=== PATIENT | female | born 1980 | race African-American/Black ===

== ENCOUNTER 2017-04-25 02:09 | Inpatient (IN) | payer OTHER ==
[~2017-04-25] VITALS: Ht 157.5 cm; Wt 152.3 kg
[2017-04-25 02:38] LABS: BASE EXCESS 5.4 mEq/L (-3 to +3); CARBOXY HGB 4.1 % (0-5); COMMENTS - BLOOD GASES C+A+; DEVICE NC; METHEMOGLOBIN 0.7 % (0-1.5); O2 FLOW 4 L/MIN; PCO2 50 mm Hg (35-45); PO2 61 mm Hg (80-100); SITE RR
[2017-04-25 03:01] LABS: HEMATOCRIT 34.9 % (36.0-46.0); MCH 18.3 PG (29.0-34.0); MCHC 25.8 G/DL (30.0-36.0); MCV 70.8 FL (83-99); MEAN PLAT.VOLUME 9.6 uM^3 (9.5-12.4); NRBC (%) 0.5 /100 WBC (0-0); PLATELET COUNT 388 K/uL (156-360); RBC DIS.WIDTH-CV 25.1 % (11.8-14.6); RBC DIS.WIDTH-SD 61.1 % (39-53); RED BLOOD COUNT 4.93 M/uL (3.80-5.20); WHITE BLOOD COUNT 10.3 K/uL (4.1-10.2)
[2017-04-25 03:05] LABS: CHLORIDE 95 mEq/L (99-109); POTASSIUM 4.5 mEq/L (3.7-5.4); SODIUM 133 mEq/L (136-147)
[2017-04-25 03:07] LABS: GLUCOSE 190 mg/dL (70-99)
[2017-04-25 03:08] LABS: ANION GAP 11 MEQ/L (2-14)
[2017-04-25 03:09] LABS: TOTAL BILIRUBIN 1.2 mg/dL (0.0-1.0)
[2017-04-25 03:11] LABS: ALKALINE PHOSPHATASE 87 IU/L (3-129)
[2017-04-25 03:12] LABS: UREA NITROGEN (BUN) 8 mg/dL (9-23)
[2017-04-25 03:14] LABS: LIPASE 7 U/L (1.0-51.0)
[2017-04-25 03:15] LABS: GFR ESTIMATE (CALCULATED) > 59 mL/min/
[2017-04-25 03:21] LABS: TROP-I INTERPRETATION NEGATIVE; TROPONIN-I < 0.01 ng/mL (0.0-0.30)
[2017-04-25 03:22] LABS: QUANTITATIVE HCG < 4.0 MIU/ML
[2017-04-25 03:29] LABS: ADD MIUA? YES; BILIRUBIN NEGATIVE; BLOOD LARGE; COLOR YELLOW ((YELLOW)); GLUCOSE (STRIP) NEGATIVE; KETONES NEGATIVE; LEUKOCYTES MODERATE; NITRITE NEGATIVE; PROTEIN (STRIP) 100; SPECIFIC GRAVITY 1.008 (1.000-1.030)
[2017-04-25 03:32] LABS: BACTERIA RARE /HPF; EPITHELIAL CELLS 1+ /HPF; MUCUS 1+ /LPF; RED BLOOD CELLS TNTC /HPF (0-5); UCUL ADDED? YES; WHITE BLOOD CELLS 15-20 /HPF (0-5)
[2017-04-25 09:40] LABS: IRON 25 MCG/DL (35-150)
[2017-04-25 13:21] VITALS: BP 125/69
[2017-04-25 17:23] VITALS: BP 112/59
[2017-04-25 20:06] VITALS: BP 127/80
[2017-04-25 22:56] VITALS: BP 130/84
[2017-04-26 04:45] VITALS: BP 118/61
[2017-04-26 06:26] LABS: HEMATOCRIT 35.2 % (36.0-46.0); MCH 17.8 PG (29.0-34.0); MCHC 24.4 G/DL (30.0-36.0); MCV 72.9 FL (83-99); NRBC (%) 0.8 /100 WBC (0-0); PLATELET COUNT 319 K/uL (156-360); RBC DIS.WIDTH-CV 24.9 % (11.8-14.6); RBC DIS.WIDTH-SD 63.4 % (39-53); RED BLOOD COUNT 4.83 M/uL (3.80-5.20); WHITE BLOOD COUNT 11.4 K/uL (4.1-10.2)
[2017-04-26 06:37] LABS: TROP-I INTERPRETATION NEGATIVE; TROPONIN-I < 0.01 ng/mL (0.0-0.30)
[2017-04-26 07:01] LABS: ANION GAP 8 MEQ/L (2-14); CHLORIDE 93 MEQ/L (99-109); GFR ESTIMATE (CALCULATED) > 59 mL/min/; POTASSIUM 4.8 MEQ/L (3.7-5.4); SAMPLE HEMOLYSIS CHECK 0; SAMPLE ICTERIC CHECK 0; SAMPLE LIPEMIA CHECK 0; SODIUM 132 MEQ/L (136-147); UREA NITROGEN (BUN) 16 mg/dL (9-23)
[2017-04-26 07:02] LABS: GLUCOSE 306 mg/dL (70-99)
[2017-04-26 07:32] LABS: BASE EXCESS 10.2 mEq/L (-3 to +3); BICARBONATE 37.8 mEq/L (22-26); CARBOXY HGB 2.9 % (0-5); METHEMOGLOBIN 1.3 % (0-1.5); PCO2 70 mm Hg (35-45); PO2 69 mm Hg (80-100); SITE LR; pH 7.34 (7.35-7.45)
[2017-04-26 07:33] LABS: COMMENTS - BLOOD GASES A+C+; DEVICE NCH; O2 FLOW 5 L/MIN
[2017-04-26 07:34] LABS: TOTAL RESP RATE 28 resp/min
[2017-04-26 07:56] VITALS: BP 124/60
[2017-04-26 11:38] VITALS: BP 132/64
[2017-04-26 11:44] LABS: TROP-I INTERPRETATION NEGATIVE; TROPONIN-I < 0.01 ng/mL (0.0-0.30)
[2017-04-26 11:45] LABS: POINT-OF-CARE METER ID UU14174216
[2017-04-26 15:32] VITALS: BP 123/74
[2017-04-26 16:42] LABS: POINT-OF-CARE METER ID UU14174216
[2017-04-26 20:05] VITALS: BP 120/68
[2017-04-26 20:56] LABS: POINT-OF-CARE METER ID UU13113698
[2017-04-26 23:45] VITALS: BP 111/69
[2017-04-27 04:45] VITALS: BP 115/67
[2017-04-27 05:45] LABS: HEMATOCRIT 34.8 % (36.0-46.0); MCH 17.9 PG (29.0-34.0); MCHC 24.7 G/DL (30.0-36.0); MCV 72.3 FL (83-99); MEAN PLAT.VOLUME 10.2 uM^3 (9.5-12.4); NRBC (%) 0.8 /100 WBC (0-0); PLATELET COUNT 314 K/uL (156-360); RBC DIS.WIDTH-CV 24.1 % (11.8-14.6); RBC DIS.WIDTH-SD 60.9 % (39-53); RED BLOOD COUNT 4.81 M/uL (3.80-5.20); WHITE BLOOD COUNT 10.7 K/uL (4.1-10.2)
[2017-04-27 06:05] LABS: ALKALINE PHOSPHATASE 89 IU/L (3-129); ANION GAP 6 MEQ/L (2-14); CHLORIDE 88 MEQ/L (99-109); GFR ESTIMATE (CALCULATED) > 59 mL/min/; GLUCOSE 328 mg/dL (70-99); POTASSIUM 3.7 MEQ/L (3.7-5.4); SAMPLE HEMOLYSIS CHECK 0; SAMPLE ICTERIC CHECK 0; SAMPLE LIPEMIA CHECK 0; SODIUM 133 MEQ/L (136-147); UREA NITROGEN (BUN) 20 mg/dL (9-23)
[2017-04-27 06:37] LABS: IMMUNOGLOBULIN A 377 MG/DL (40-350); IMMUNOGLOBULIN M 87 MG/DL (50-300)
[2017-04-27 06:49] LABS: IMMUNOGLOBULIN G 3172 MG/DL (650-1600)
[2017-04-27 07:30] VITALS: BP 109/61
[2017-04-27 08:06] LABS: Estimated Average Glucose 229 mg/dL (70-123); HEMOGLOBIN A1c (GLYCOHEMOGLOB) 9.6 % HGB (Below 5.7)
[2017-04-27 08:43] LABS: POINT-OF-CARE METER ID UU14314088; POINT-OF-CARE USER ID ENVKC36
[2017-04-27 11:49] VITALS: BP 115/66
[2017-04-27 12:14] LABS: ANTI-HEPATITIS A VIRUS (IGM) Nonreactive; HAV INDEX 0.15
[2017-04-27 12:15] LABS: ANTI-HEPATITIS B CORE (IGM) Nonreactive; HBC IgM INDEX 0.09
[2017-04-27 12:30] LABS: POINT-OF-CARE METER ID UU14174216
[2017-04-27 13:32] LABS: JO-1 ANTIBODY 14 U/mL (0-99); SM (SMITH) ANTIBODY 16 U/mL (0-99); SS-A (SJOGREN'S) ANTIBODY 103 U/mL (0-99); SS-B (SJOGREN'S) ANTIBODY 12 U/mL (0-99)
[2017-04-27 16:52] VITALS: BP 117/60
[2017-04-27 17:00] LABS: POINT-OF-CARE METER ID UU13113781; POINT-OF-CARE USER ID ENVKC36
[2017-04-27 20:05] VITALS: BP 130/81
[2017-04-27 21:30] LABS: POINT-OF-CARE METER ID UU13113698
[2017-04-28 00:20] VITALS: BP 114/73
[2017-04-28 01:20] LABS: UR CREATININE CONCENTRATION 87.4 MG/DL
[2017-04-28 04:45] LABS: VENOUS PCO2 75 mm Hg (41-51)
[2017-04-28 04:47] LABS: CARBON DIOXIDE (BICARBONATE) > 40.0 MEQ/L (20-31)
[2017-04-28 05:04] LABS: POTASSIUM 3.7 mEq/L (3.7-5.4); SODIUM 133 mEq/L (136-147)
[2017-04-28 05:05] LABS: CHLORIDE 85 mEq/L (99-109); MAGNESIUM 1.1 mg/dL (1.3-2.7)
[2017-04-28 05:06] LABS: GLUCOSE 390 mg/dL (70-99)
[2017-04-28 05:07] LABS: ANION GAP 8 MEQ/L (2-14)
[2017-04-28 05:10] LABS: GFR ESTIMATE (CALCULATED) > 59 mL/min/
[2017-04-28 05:11] LABS: UREA NITROGEN (BUN) 24 mg/dL (9-23)
[2017-04-28 05:14] LABS: BASE EXCESS 21.7 mEq/L (-3 to +3); BICARBONATE 50.2 mEq/L (22-26); CARBOXY HGB 2.9 % (0-5); COMMENTS - BLOOD GASES A+C+; DEVICE HHFNC; FI02 40 %; METHEMOGLOBIN 1.6 % (0-1.5); O2 FLOW 30 L/MIN; PCO2 83 mm Hg (35-45); PO2 58 mm Hg (80-100); SITE LR; pH 7.39 (7.35-7.45)
[2017-04-28 07:45] VITALS: BP 118/69
[2017-04-28 07:46] LABS: POINT-OF-CARE METER ID UU13113698
[2017-04-28 11:48] VITALS: BP 120/61
[2017-04-28 11:52] LABS: POINT-OF-CARE METER ID UU13113698
[2017-04-28 14:28] LABS: ALPHA-1-ANTITRYPSIN+ 251 mg/dL (83-199)
[2017-04-28 15:41] VITALS: BP 128/62
[2017-04-28 17:34] LABS: POINT-OF-CARE METER ID UU14314088
[2017-04-28 19:15] VITALS: BP 125/65
[2017-04-28 21:51] LABS: POINT-OF-CARE METER ID UU13113781
[2017-04-28 23:58] VITALS: BP 117/65
[2017-04-29 00:21] LABS: ANTI-SMOOTH MUSCLE (Actin)+ <20 U (<20)
[2017-04-29 03:40] VITALS: BP 118/76
[2017-04-29 05:23] LABS: CHLORIDE 82 mEq/L (99-109); POTASSIUM 4.2 mEq/L (3.7-5.4); SODIUM 133 mEq/L (136-147)
[2017-04-29 05:25] LABS: GLUCOSE 382 mg/dL (70-99)
[2017-04-29 05:26] LABS: ANION GAP 6 MEQ/L (2-14)
[2017-04-29 05:29] LABS: GFR ESTIMATE (CALCULATED) > 59 mL/min/
[2017-04-29 05:30] LABS: UREA NITROGEN (BUN) 27 mg/dL (9-23)
[2017-04-29 05:32] LABS: CARBON DIOXIDE (BICARBONATE) > 40.0 mEq/L (20-31); MAGNESIUM 1.7 mg/dL (1.3-2.7)
[2017-04-29 07:45] VITALS: BP 120/71
[2017-04-29 08:09] LABS: POINT-OF-CARE METER ID UU13113781
[2017-04-29 11:56] LABS: POINT-OF-CARE METER ID UU13113698
[2017-04-29 12:25] LABS: MITOCHONDRIAL (M2) ANTIBODIES+ <=20.0 U (<=20.0)
[2017-04-29 12:49] VITALS: BP 129/74
[2017-04-29 15:35] VITALS: BP 123/79
[2017-04-29 16:44] LABS: POINT-OF-CARE METER ID UU14174216
[2017-04-29 19:20] VITALS: BP 121/76
[2017-04-29 21:00] LABS: POINT-OF-CARE METER ID UU14314088
[2017-04-30 00:10] VITALS: BP 162/60
[2017-04-30 04:27] VITALS: BP 120/72
[2017-04-30 05:22] LABS: HEMATOCRIT 40.9 % (36.0-46.0); MCH 18.2 PG (29.0-34.0); MCHC 24.7 G/DL (30.0-36.0); MCV 73.7 FL (83-99); MEAN PLAT.VOLUME 9.9 uM^3 (9.5-12.4); NRBC (%) 0.2 /100 WBC (0-0); PLATELET COUNT 361 K/uL (156-360); RBC DIS.WIDTH-CV 23.4 % (11.8-14.6); RBC DIS.WIDTH-SD 61.1 % (39-53); RED BLOOD COUNT 5.55 M/uL (3.80-5.20); WHITE BLOOD COUNT 9.1 K/uL (4.1-10.2)
[2017-04-30 05:44] LABS: ANION GAP ND MEQ/L (2-14); CARBON DIOXIDE (BICARBONATE) > 40.0 MEQ/L (20-31); CHLORIDE 80 MEQ/L (99-109); GFR ESTIMATE (CALCULATED) > 59 mL/min/; GLUCOSE 215 mg/dL (70-99); MAGNESIUM 1.8 mg/dl (1.3-2.7); POTASSIUM 4.5 MEQ/L (3.7-5.4); SAMPLE HEMOLYSIS CHECK 0; SAMPLE ICTERIC CHECK 0; SAMPLE LIPEMIA CHECK 0; SODIUM 136 MEQ/L (136-147); UREA NITROGEN (BUN) 25 mg/dL (9-23)
[2017-04-30 07:38] LABS: POINT-OF-CARE METER ID UU13113698
[2017-04-30 08:13] VITALS: BP 99/53
[2017-04-30 09:56] LABS: BASE EXCESS 33.4 mEq/L (-3 to +3); CARBOXY HGB 2.6 % (0-5); METHEMOGLOBIN 1.3 % (0-1.5)
[2017-04-30 09:57] LABS: BICARBONATE 64.4 mEq/L (22-26); DEVICE NC; O2 FLOW 3.5 L/MIN; PCO2 104 mm Hg (35-45); PO2 109 mm Hg (80-100); SITE RR; TOTAL RESP RATE 14 resp/min
[2017-04-30 09:58] LABS: COMMENTS - BLOOD GASES A+C+ CALLED TO RN
[2017-04-30 11:56] LABS: POINT-OF-CARE METER ID UU14174216
[2017-04-30 11:57] VITALS: BP 101/54
[2017-04-30 16:25] VITALS: BP 125/75
[2017-04-30 16:32] LABS: POINT-OF-CARE METER ID UU14174216
[2017-04-30 16:49] LABS: BASE EXCESS 28.4 mEq/L (-3 to +3); BICARBONATE 57.7 mEq/L (22-26); CARBOXY HGB 2.9 % (0-5); COMMENTS - BLOOD GASES A+C+; DEVICE NC; METHEMOGLOBIN 1.6 % (0-1.5); O2 FLOW 2 L/MIN; PCO2 87 mm Hg (35-45); PO2 62 mm Hg (80-100); SITE RR; TOTAL RESP RATE 14 resp/min; pH 7.43 (7.35-7.45)
[2017-04-30 22:27] LABS: POINT-OF-CARE METER ID UU14174225
[2017-04-30 23:35] VITALS: BP 113/74
[2017-05-01 04:35] VITALS: BP 110/71
[2017-05-01 06:03] LABS: EOSINOPHIL (%) 1.1 % (0-5); EOSINOPHIL COUNT 0.1 K/uL (0-0.3); HEMATOCRIT 41.9 % (36.0-46.0); IMMATURE GRANULOCYTE (%) 0.6 % (0.0-0.7); IMMATURE GRANULOCYTE COUNT 0.1 K/uL; INSTRUMENT ABS NEUTROPHIL CT 7.8 K/uL; LYMPHOCYTE COUNT 1.3 K/uL (1.0-2.8); MCH 18.1 PG (29.0-34.0); MCHC 25.3 G/DL (30.0-36.0); MCV 71.4 FL (83-99); MEAN PLAT.VOLUME 9.5 uM^3 (9.5-12.4); MONOCYTE COUNT 1.3 K/uL (0-0.8); NEUTROPHIL (%) 73.9 % (45-76); NEUTROPHIL COUNT 7.8 K/uL (1.8-6.4); PLATELET COUNT 384 K/uL (156-360); RBC DIS.WIDTH-CV 23.1 % (11.8-14.6); RBC DIS.WIDTH-SD 57.6 % (39-53); RED BLOOD COUNT 5.87 M/uL (3.80-5.20); WHITE BLOOD COUNT 10.6 K/uL (4.1-10.2)
[2017-05-01 06:25] LABS: ANION GAP ND MEQ/L (2-14); CHLORIDE 78 MEQ/L (99-109); GFR ESTIMATE (CALCULATED) > 59 mL/min/; SAMPLE HEMOLYSIS CHECK 0; SAMPLE ICTERIC CHECK 0; SAMPLE LIPEMIA CHECK 0; SODIUM 134 MEQ/L (136-147); UREA NITROGEN (BUN) 22 mg/dL (9-23)
[2017-05-01 06:26] LABS: CARBON DIOXIDE (BICARBONATE) > 40.0 MEQ/L (20-31); GLUCOSE 104 mg/dL (70-99)
[2017-05-01 07:54] VITALS: BP 117/72
[2017-05-01 10:03] LABS: POINT-OF-CARE METER ID UU13113717
[2017-05-01 11:36] VITALS: BP 109/76
[2017-05-01 12:23] LABS: POINT-OF-CARE METER ID UU14188625
[2017-05-01 16:24] VITALS: BP 116/73
[2017-05-01 16:26] VITALS: BP 124/73
[2017-05-01 18:00] LABS: ANION GAP ND MEQ/L (2-14); CHLORIDE 78 MEQ/L (99-109); GFR ESTIMATE (CALCULATED) > 59 mL/min/; POTASSIUM 3.7 MEQ/L (3.7-5.4); SAMPLE HEMOLYSIS CHECK 0; SAMPLE ICTERIC CHECK 0; SAMPLE LIPEMIA CHECK 0; SODIUM 133 MEQ/L (136-147); UREA NITROGEN (BUN) 22 mg/dL (9-23)
[2017-05-01 18:09] LABS: CARBON DIOXIDE (BICARBONATE) > 40.0 MEQ/L (20-31); GLUCOSE 195 mg/dL (70-99)
[2017-05-01 18:42] LABS: POINT-OF-CARE METER ID UU14188625
[2017-05-01 23:38] LABS: POINT-OF-CARE METER ID UU13113717
[2017-05-01 23:43] VITALS: BP 130/63
[2017-05-02 07:02] LABS: ALKALINE PHOSPHATASE 102 IU/L (3-129); ANION GAP ND MEQ/L (2-14); CHLORIDE 75 MEQ/L (99-109); DIRECT BILIRUBIN 0.6 mg/dL (0.0-0.3); GFR ESTIMATE (CALCULATED) > 59 mL/min/; GLUCOSE 160 mg/dL (70-99); POTASSIUM 4.1 MEQ/L (3.7-5.4); SAMPLE HEMOLYSIS CHECK 0; SAMPLE ICTERIC CHECK 0; SAMPLE LIPEMIA CHECK 0; SODIUM 133 MEQ/L (136-147); UREA NITROGEN (BUN) 26 mg/dL (9-23)
[2017-05-02 07:08] LABS: CARBON DIOXIDE (BICARBONATE) > 40.0 MEQ/L (20-31); EOSINOPHIL (%) 1.7 % (0-5); EOSINOPHIL COUNT 0.2 K/uL (0-0.3); HEMATOCRIT 45.8 % (36.0-46.0); IMMATURE GRANULOCYTE (%) 0.4 % (0.0-0.7); IMMATURE GRANULOCYTE COUNT 0.1 K/uL; INSTRUMENT ABS NEUTROPHIL CT 9.4 K/uL; LYMPHOCYTE COUNT 1.2 K/uL (1.0-2.8); MCH 18.4 PG (29.0-34.0); MCHC 25.8 G/DL (30.0-36.0); MCV 71.2 FL (83-99); MEAN PLAT.VOLUME 9.5 uM^3 (9.5-12.4); MONOCYTE (%) 10.2 % (3-12); MONOCYTE COUNT 1.2 K/uL (0-0.8); NEUTROPHIL (%) 77.6 % (45-76); NEUTROPHIL COUNT 9.4 K/uL (1.8-6.4); PLATELET COUNT 431 K/uL (156-360); RBC DIS.WIDTH-CV 23.3 % (11.8-14.6); RBC DIS.WIDTH-SD 57.2 % (39-53); RED BLOOD COUNT 6.43 M/uL (3.80-5.20); TOTAL BILIRUBIN 1.4 MG/DL (0.0-1.0); WHITE BLOOD COUNT 12.1 K/uL (4.1-10.2)
[2017-05-02 07:57] VITALS: BP 113/72
[2017-05-02 12:28] LABS: POINT-OF-CARE METER ID UU14174225
[2017-05-02 16:33] VITALS: BP 112/69
[2017-05-02 16:44] LABS: POINT-OF-CARE METER ID UU13113717
[2017-05-02 21:53] LABS: POINT-OF-CARE METER ID UU13113717
[2017-05-02 23:43] VITALS: BP 117/64
[2017-05-03 06:30] LABS: EOSINOPHIL (%) 1.6 % (0-5); EOSINOPHIL COUNT 0.2 K/uL (0-0.3); HEMATOCRIT 44.7 % (36.0-46.0); IMMATURE GRANULOCYTE (%) 0.5 % (0.0-0.7); IMMATURE GRANULOCYTE COUNT 0.1 K/uL; INSTRUMENT ABS NEUTROPHIL CT 10.2 K/uL; LYMPHOCYTE COUNT 1.4 K/uL (1.0-2.8); MCH 18.6 PG (29.0-34.0); MCV 71.5 FL (83-99); MEAN PLAT.VOLUME 9.7 uM^3 (9.5-12.4); MONOCYTE (%) 11.2 % (3-12); MONOCYTE COUNT 1.5 K/uL (0-0.8); NEUTROPHIL COUNT 10.2 K/uL (1.8-6.4); PLATELET COUNT 425 K/uL (156-360); RBC DIS.WIDTH-CV 23.8 % (11.8-14.6); RBC DIS.WIDTH-SD 57.7 % (39-53); RED BLOOD COUNT 6.25 M/uL (3.80-5.20); WHITE BLOOD COUNT 13.4 K/uL (4.1-10.2)
[2017-05-03 07:03] LABS: ALKALINE PHOSPHATASE 108 IU/L (3-129); ANION GAP ND MEQ/L (2-14); CHLORIDE 78 MEQ/L (99-109); GFR ESTIMATE (CALCULATED) > 59 mL/min/; GLUCOSE 140 mg/dL (70-99); POTASSIUM 3.7 MEQ/L (3.7-5.4); SAMPLE HEMOLYSIS CHECK 0; SAMPLE ICTERIC CHECK 0; SAMPLE LIPEMIA CHECK 0; SODIUM 133 MEQ/L (136-147); TOTAL BILIRUBIN 1.5 MG/DL (0.0-1.0); UREA NITROGEN (BUN) 26 mg/dL (9-23)
[2017-05-03 07:04] LABS: CARBON DIOXIDE (BICARBONATE) > 40.0 MEQ/L (20-31)
[2017-05-03 07:52] VITALS: BP 124/66
[2017-05-03 12:04] LABS: POINT-OF-CARE METER ID UU14174225
[2017-05-03 16:05] VITALS: BP 130/58
[2017-05-03 17:06] LABS: POINT-OF-CARE METER ID UU13113717
[2017-05-03 21:27] LABS: POINT-OF-CARE METER ID UU13113717
[2017-05-03 23:41] VITALS: BP 115/73
[2017-05-04 07:44] VITALS: BP 132/84
[2017-05-04 07:48] LABS: POINT-OF-CARE METER ID UU14174225
[2017-05-04 09:25] LABS: ADD MIUA? YES; BILIRUBIN NEGATIVE; BLOOD LARGE; COLOR AMBER ((YELLOW)); GLUCOSE (STRIP) NEGATIVE; KETONES NEGATIVE; LEUKOCYTES MODERATE; NITRITE NEGATIVE; PROTEIN (STRIP) 30; SPECIFIC GRAVITY 1.018 (1.000-1.030)
[2017-05-04 10:26] LABS: RED BLOOD CELLS TNTC /HPF (0-5)
[2017-05-04 12:18] LABS: POINT-OF-CARE METER ID UU14188625
[2017-05-04 12:42] LABS: POINT-OF-CARE METER ID UU13113717
[2017-05-04 13:08] LABS: EOSINOPHIL COUNT 0.3 K/uL (0-0.3); HEMATOCRIT 46.1 % (36.0-46.0); IMMATURE GRANULOCYTE (%) 0.8 % (0.0-0.7); IMMATURE GRANULOCYTE COUNT 0.1 K/uL; INSTRUMENT ABS NEUTROPHIL CT 9.7 K/uL; LYMPHOCYTE COUNT 1.9 K/uL (1.0-2.8); MCH 18.9 PG (29.0-34.0); MCV 72.6 FL (83-99); MEAN PLAT.VOLUME 9.6 uM^3 (9.5-12.4); MONOCYTE (%) 14.4 % (3-12); NEUTROPHIL (%) 69.4 % (45-76); NEUTROPHIL COUNT 9.7 K/uL (1.8-6.4); PLATELET COUNT 429 K/uL (156-360); RBC DIS.WIDTH-CV 24.9 % (11.8-14.6); RBC DIS.WIDTH-SD 61.2 % (39-53); RED BLOOD COUNT 6.35 M/uL (3.80-5.20)
[2017-05-04 13:55] LABS: ALKALINE PHOSPHATASE 108 IU/L (3-129); ANION GAP 10 MEQ/L (2-14); CHLORIDE 82 MEQ/L (99-109); GFR ESTIMATE (CALCULATED) > 59 mL/min/; GLUCOSE 141 mg/dL (70-99); POTASSIUM 4.2 MEQ/L (3.7-5.4); SAMPLE HEMOLYSIS CHECK 0; SAMPLE ICTERIC CHECK 0; SAMPLE LIPEMIA CHECK 0; SODIUM 130 MEQ/L (136-147); TOTAL BILIRUBIN 1.6 MG/DL (0.0-1.0); UREA NITROGEN (BUN) 26 mg/dL (9-23)
[2017-05-04 16:47] LABS: POINT-OF-CARE METER ID UU13113717
[2017-05-04 17:36] VITALS: BP 136/73
[2017-05-04 22:34] LABS: POINT-OF-CARE METER ID UU13113717
[2017-05-04 23:47] VITALS: BP 134/68
[2017-05-05 06:21] LABS: ALKALINE PHOSPHATASE 100 IU/L (3-129); ANION GAP 11 MEQ/L (2-14); CHLORIDE 85 MEQ/L (99-109); GFR ESTIMATE (CALCULATED) > 59 mL/min/; GLUCOSE 134 mg/dL (70-99); POTASSIUM 4.3 MEQ/L (3.7-5.4); SAMPLE HEMOLYSIS CHECK 0; SAMPLE ICTERIC CHECK 0; SAMPLE LIPEMIA CHECK 0; SODIUM 131 MEQ/L (136-147); TOTAL BILIRUBIN 1.4 MG/DL (0.0-1.0); UREA NITROGEN (BUN) 24 mg/dL (9-23)
[2017-05-05 06:49] LABS: EOSINOPHIL COUNT 0.2 K/uL (0-0.3); HEMATOCRIT 44.8 % (36.0-46.0); IMMATURE GRANULOCYTE (%) 0.9 % (0.0-0.7); IMMATURE GRANULOCYTE COUNT 0.1 K/uL; INSTRUMENT ABS NEUTROPHIL CT 7.4 K/uL; LYMPHOCYTE COUNT 1.7 K/uL (1.0-2.8); MCH 18.7 PG (29.0-34.0); MCHC 25.9 G/DL (30.0-36.0); MCV 72.1 FL (83-99); MEAN PLAT.VOLUME 9.8 uM^3 (9.5-12.4); MONOCYTE COUNT 1.9 K/uL (0-0.8); NEUTROPHIL (%) 64.9 % (45-76); NEUTROPHIL COUNT 7.4 K/uL (1.8-6.4); PLATELET COUNT 434 K/uL (156-360); RBC DIS.WIDTH-CV 24.8 % (11.8-14.6); RBC DIS.WIDTH-SD 61.2 % (39-53); RED BLOOD COUNT 6.21 M/uL (3.80-5.20); WHITE BLOOD COUNT 11.4 K/uL (4.1-10.2)
[2017-05-05 07:18] LABS: POINT-OF-CARE METER ID UU14174225
[2017-05-05 07:36] VITALS: BP 104/69
[2017-05-05 12:04] LABS: POINT-OF-CARE METER ID UU14174225
[2017-05-05 15:56] VITALS: BP 115/68
[2017-05-05 16:59] LABS: POINT-OF-CARE METER ID UU14188625
[2017-05-05 21:32] LABS: POINT-OF-CARE METER ID UU14174225
[2017-05-05 23:37] VITALS: BP 115/61
[2017-05-06 00:04] LABS: POINT-OF-CARE METER ID UU14188625
[2017-05-06 03:16] LABS: POINT-OF-CARE METER ID UU13113717
[2017-05-06 06:17] LABS: EOSINOPHIL (%) 1.7 % (0-5); EOSINOPHIL COUNT 0.2 K/uL (0-0.3); IMMATURE GRANULOCYTE (%) 0.6 % (0.0-0.7); IMMATURE GRANULOCYTE COUNT 0.1 K/uL; INSTRUMENT ABS NEUTROPHIL CT 7.7 K/uL; LYMPHOCYTE COUNT 1.3 K/uL (1.0-2.8); MCH 19.4 PG (29.0-34.0); MCHC 26.4 G/DL (30.0-36.0); MCV 73.7 FL (83-99); MEAN PLAT.VOLUME 10.1 uM^3 (9.5-12.4); MONOCYTE (%) 14.7 % (3-12); MONOCYTE COUNT 1.6 K/uL (0-0.8); NEUTROPHIL (%) 70.6 % (45-76); NEUTROPHIL COUNT 7.7 K/uL (1.8-6.4); PLATELET COUNT 424 K/uL (156-360); RBC DIS.WIDTH-SD 66.2 % (39-53); RED BLOOD COUNT 5.97 M/uL (3.80-5.20); WHITE BLOOD COUNT 10.9 K/uL (4.1-10.2)
[2017-05-06 06:57] VITALS: BP 110/66
[2017-05-06 07:15] LABS: POINT-OF-CARE METER ID UU14174225
[2017-05-06 07:59] LABS: ANION GAP 11 MEQ/L (2-14); CHLORIDE 86 MEQ/L (99-109); GFR ESTIMATE (CALCULATED) > 59 mL/min/; GLUCOSE 170 mg/dL (70-99); POTASSIUM 3.9 MEQ/L (3.7-5.4); SAMPLE HEMOLYSIS CHECK 0; SAMPLE ICTERIC CHECK 0; SAMPLE LIPEMIA CHECK 0; SODIUM 131 MEQ/L (136-147); UREA NITROGEN (BUN) 20 mg/dL (9-23)
[2017-05-06 11:12] LABS: POINT-OF-CARE METER ID UU14174225
[2017-05-06 16:14] LABS: POINT-OF-CARE METER ID UU14188625
[2017-05-06 20:38] VITALS: BP 106/62
[2017-05-06 20:59] LABS: POINT-OF-CARE METER ID UU14188625
[2017-05-06 23:38] VITALS: BP 116/70
[2017-05-07 06:11] LABS: HEMATOCRIT 45.8 % (36.0-46.0); MCH 19.1 PG (29.0-34.0); MCHC 25.8 G/DL (30.0-36.0); MCV 74.2 FL (83-99); MEAN PLAT.VOLUME 9.7 uM^3 (9.5-12.4); PLATELET COUNT 408 K/uL (156-360); RBC DIS.WIDTH-CV 26.1 % (11.8-14.6); RBC DIS.WIDTH-SD 67.5 % (39-53); RED BLOOD COUNT 6.17 M/uL (3.80-5.20); WHITE BLOOD COUNT 11.7 K/uL (4.1-10.2)
[2017-05-07 06:30] LABS: ANION GAP 9 MEQ/L (2-14); CHLORIDE 86 MEQ/L (99-109); GFR ESTIMATE (CALCULATED) > 59 mL/min/; GLUCOSE 130 mg/dL (70-99); POTASSIUM 4.3 MEQ/L (3.7-5.4); SAMPLE HEMOLYSIS CHECK 1; SAMPLE ICTERIC CHECK 0; SAMPLE LIPEMIA CHECK 0; SODIUM 131 MEQ/L (136-147); UREA NITROGEN (BUN) 20 mg/dL (9-23)
[2017-05-07] MEDS ORDERED: SPIRONOLACTONE25 MG PO (07:23)
[2017-05-07] MEDS ORDERED: LOPRESSOR25 MG PO (07:23)
[2017-05-07] MEDS ORDERED: LEVEMIR100 UNIT/2 SC (07:23)
[2017-05-07] MEDS ORDERED: FERROUS SULFAT325 MG PO (07:23)
[2017-05-07] MEDS ORDERED: K-DUR20 MEQ PO (07:23)
[2017-05-07] MEDS ORDERED: NOVOLOG PE100 UNITS/ SC (07:23)
[2017-05-07] MEDS ORDERED: BUMETANIDE1 MG PO (07:23)
[2017-05-07 07:26] LABS: POINT-OF-CARE METER ID UU14188625
[2017-05-07 07:49] VITALS: BP 125/70
[2017-05-07] MEDS ORDERED: ADVAIR HFA120 INHALA IH (10:55)
[2017-05-07 12:28] LABS: POINT-OF-CARE METER ID UU14174225
[2017-05-07 16:00] VITALS: BP 113/62
[2017-05-07 17:42] LABS: POINT-OF-CARE METER ID UU14188625
[2017-05-07 21:03] LABS: POINT-OF-CARE METER ID UU14188625
[2017-05-07 23:33] VITALS: BP 115/67
[2017-05-08 08:58] LABS: POINT-OF-CARE METER ID UU13113717
[2017-05-08 09:08] VITALS: BP 132/67
[2017-05-08 12:22] LABS: POINT-OF-CARE METER ID UU13113717
[2017-05-08 16:47] VITALS: BP 110/60
[2017-05-08 16:53] LABS: POINT-OF-CARE METER ID UU14174225
[2017-05-08 21:53] LABS: POINT-OF-CARE METER ID UU13113717
[2017-05-08 23:42] VITALS: BP 121/58
[2017-05-09 07:50] VITALS: BP 130/72
[2017-05-09 08:39] LABS: POINT-OF-CARE METER ID UU13113717
[2017-05-09 12:08] LABS: POINT-OF-CARE METER ID UU14174225
[2017-05-09 16:17] VITALS: BP 128/66
[2017-05-09 17:29] LABS: POINT-OF-CARE METER ID UU13113717
[2017-05-09 21:24] LABS: POINT-OF-CARE METER ID UU14188625
[2017-05-09 23:50] VITALS: BP 114/69
[2017-05-10 06:45] LABS: HEMATOCRIT 40.5 % (36.0-46.0); MCH 20.1 PG (29.0-34.0); MCHC 26.4 G/DL (30.0-36.0); MEAN PLAT.VOLUME 10.4 uM^3 (9.5-12.4); PLATELET COUNT 334 K/uL (156-360); RBC DIS.WIDTH-CV 27.4 % (11.8-14.6); RBC DIS.WIDTH-SD 73.1 % (39-53); RED BLOOD COUNT 5.33 M/uL (3.80-5.20)
[2017-05-10 06:47] LABS: ANION GAP 9 MEQ/L (2-14); CHLORIDE 91 MEQ/L (99-109); GFR ESTIMATE (CALCULATED) > 59 mL/min/; GLUCOSE 158 mg/dL (70-99); POTASSIUM 4.1 MEQ/L (3.7-5.4); SAMPLE HEMOLYSIS CHECK 0; SAMPLE ICTERIC CHECK 0; SAMPLE LIPEMIA CHECK 0; SODIUM 136 MEQ/L (136-147); UREA NITROGEN (BUN) 16 mg/dL (9-23)
[2017-05-10 07:17] VITALS: BP 131/74
[2017-05-10 11:30] LABS: POINT-OF-CARE METER ID UU14174225
[2017-05-10 16:19] VITALS: BP 133/72
[2017-05-10 16:26] LABS: POINT-OF-CARE METER ID UU14188625
[2017-05-10 21:41] LABS: POINT-OF-CARE METER ID UU14174225
[2017-05-10 23:37] VITALS: BP 133/60
[2017-05-11 08:46] LABS: POINT-OF-CARE METER ID UU14174225
[2017-05-11 11:42] LABS: POINT-OF-CARE METER ID UU14174225
[2017-05-11 16:30] VITALS: BP 108/63
[2017-05-11 16:35] LABS: POINT-OF-CARE METER ID UU14174225
[2017-05-11 21:06] LABS: POINT-OF-CARE METER ID UU13113717
[2017-05-12 00:01] VITALS: BP 135/63
[2017-05-12 07:43] VITALS: BP 129/72
[2017-05-12 07:46] LABS: POINT-OF-CARE METER ID UU14174225
[2017-05-12 13:01] LABS: POINT-OF-CARE METER ID UU14174225
[2017-05-12 15:56] VITALS: BP 114/56
[2017-05-12 17:07] LABS: POINT-OF-CARE METER ID UU13113717
[2017-05-12 21:31] LABS: POINT-OF-CARE METER ID UU14174225
[2017-05-13] VITALS: BP 103/55
[2017-05-13 07:26] VITALS: BP 125/68
[2017-05-13 07:29] LABS: POINT-OF-CARE METER ID UU14174225
[2017-05-13 11:45] LABS: POINT-OF-CARE METER ID UU14174225
[2017-05-13 16:12] VITALS: BP 108/66
[2017-05-13 16:53] LABS: POINT-OF-CARE METER ID UU13113717
== END 2017-05-13 18:32 | DRG 205 ==
LOC: EME 02:09 → EDBD 02:09 → 4EAST 03:55 → EDOF 03:55 → ENRESERV 03:56 → 4EAST 12:40 → ENRESERV 04-30 15:59 → 5SOUTH 04-30 18:06
PROVIDERS: Emergency Medicine; Hospitalist; Internal Medicine; Internal Medicine Gastroenterology; Physician Assistant Medical
DX: E66.2 Morbid (severe) obesity with alveolar hypoventilation (principal); Z68.45 Body mass index [BMI] 70 or greater, adult; J96.21 Acute and chronic respiratory failure with hypoxia; J96.22 Acute and chronic respiratory failure with hypercapnia; I11.0 Hypertensive heart disease with heart failure; I50.813 Acute on chronic right heart failure; N39.0 Urinary tract infection, site not specified; E87.4 Mixed disorder of acid-base balance; E11.65 Type 2 diabetes mellitus with hyperglycemia; E83.42 Hypomagnesemia; I27.29 Other secondary pulmonary hypertension; R18.8 Other ascites; E87.6 Hypokalemia; K74.60 Unspecified cirrhosis of liver; E88.09 Other disorders of plasma-protein metabolism, not elsewhere classified; I36.1 Nonrheumatic tricuspid (valve) insufficiency; E88.81 Metabolic syndrome and other insulin resistance; E87.1 Hypo-osmolality and hyponatremia; I27.81 Cor pulmonale (chronic); J44.1 Chronic obstructive pulmonary disease with (acute) exacerbation; D63.8 Anemia in other chronic diseases classified elsewhere; D50.9 Iron deficiency anemia, unspecified; S80.811A Abrasion, right lower leg, initial encounter; X58.XXXA Exposure to other specified factors, initial encounter; Z91.19 Patient's noncompliance with other medical treatment and regimen; R59.0 Localized enlarged lymph nodes; K22.4 Dyskinesia of esophagus; L29.9 Pruritus, unspecified; N20.0 Calculus of kidney; R00.0 Tachycardia, unspecified; R32 Unspecified urinary incontinence; T50.2X5A Adverse effect of carbonic-anhydrase inhibitors, benzothiadiazides and other diuretics, initial encounter; R80.9 Proteinuria, unspecified; F51.04 Psychophysiologic insomnia; F60.9 Personality disorder, unspecified; N92.1 Excessive and frequent menstruation with irregular cycle; N89.8 Other specified noninflammatory disorders of vagina; Z71.3 Dietary counseling and surveillance; Z82.49 Family history of ischemic heart disease and other diseases of the circulatory system; Z83.3 Family history of diabetes mellitus
CPT/HCPCS: 36600; 71010; 71260; 74177; 80048; 80048 91; 80053; 80069; 80074; 80076; 81003; 82103 90; 82306; 82390; 82570; 82607; 82746; 82784 90; 82803; 82948; 83036; 83516 90; 83540; 83690; 83735; 83880; 84156; 84443; 84466; 84484; 84702; 85025; 85027; 85730; 86038; 86235; 86256 90; 87086; 93005; 93306; 93970; 94640; 94640 76; 94644; 94660; 94760; 94799; 97530 GO; 97530 GP; 99202; 99281; 99285; J0696; J1644; J1650; J1815; J1940; J2060; J2930; J3475; J7040; J7050; J7512

== ENCOUNTER → 2018-01-01 | Outpatient (CLI) | payer OTHER ==
[~2018-01-01] MED LIST: ADVAIR HFA120 INHALA IH; BUMETANIDE1 MG PO; FERROUS SULFAT325 MG PO; K-DUR20 MEQ PO; LEVEMIR100 UNIT/2 SC; LOPRESSOR25 MG PO; NOVOLOG PE100 UNITS/ SC; SPIRONOLACTONE25 MG PO
== END | disposition home or self-care (01) ==
LOC: RES 08:00
DX: Z02.71 Encounter for disability determination (principal)
CPT/HCPCS: 94060; 94729; 94760